=== PATIENT | female | born 1970 | race Caucasian/White ===

== ENCOUNTER 2017-03-08 22:30 | Emergency (ER) | payer BC ==
[2017-03-08 22:41] VITALS: BP 144/81; PULSE 83; TEMP 98.7; BMI 24.5
[2017-03-08] MEDS ORDERED: SODIUM CHLORIDE 1,000 ML IV ONE (22:45)
[2017-03-08] MEDS ORDERED: morphine CARPU-JECT 4 MG/1 ML DISP.SYRIN IVPUSH ONE (22:45)
[2017-03-08] MEDS ORDERED: ONDANSETRON 4 MG/2 ML VIAL IVPB ONE (22:45)
[2017-03-08] MEDS ORDERED: KETOROLAC TROMETHAMINE 30 MG/1 ML VIAL IVPUSH ONE (22:45)
--- NOTE | 2017-03-08 22:53 | PDOC ---
History of Present Illness - General Chief Complaint: Pain, Acute Stated Complaint: ABDOMINAL PAIN Time Seen by Provider: 03/08/17 22:32 History Source: Patient Exam Limitations: No Limitations - History of Present Illness Initial Comments: 03/08/17 23:04 This is a 46-year-old female who comes in complaining of progressive pelvic pain 1 day. Patient is rise pain is severe and similar to pain she had when she had a ruptured ovarian cyst and also similar to pain she had when she had uterine fibroids. Patient is status post hysterectomy for removal of her fibroids but still has her ovaries. Patient denies any fevers or chills. Patient is complaining some nausea but denies any vomiting. Patient took some NSAIDs this morning for the pain. Patient denies any frequency, dysuria, back pain or flank pain. PAST MEDICAL HISTORY: as per history of present illness PAST SURGICAL HISTORY: As per history of present illnes SOCIAL HISTORY: Pt lives with family and is employed. MEDICATIONS: reviewed ALLERGIES: As per nursing notes Review of Systems General: No fevers or chills, no weakness, no weight loss HEENT: No change in vision. No sore throat,. No ear pain CardioVascular: No chest pain or shortness of breath Respiratory:No cough, or wheezing. Gastrointestinal: Positive nausea, no vomitting, diarrhea or constipation, No rectal bleeding Genitourinary: No dysuria, hematuria, or frequency, positive pelvic pain Musculoskeletal: No joint or muscle pain or swelling Neurologic: No headache, vertigo, dizziness or loss of consciousness Psychiatric: nor depression Skin: No rashes or easy bruising Endocrine: no increased thirst or abnormal weight change Allergic: no skin or latex allergy All other systems reviewed and normal Exam: General: Well-nourished well-developed individual, no acute distress HEENT: Throat: Normal, tonsils normal, no erythema or exudate Neck: Supple, no meningeal signs, no lymphadenopathy Eyes::Pupils equal reactive and round, extraocular motion intact Cardiac: S1-S2 normal, regular rate and rhythm, no murmurs rubs or gallops Respiratory: Lungs clear to auscultation bilateral Abdomen: Soft, nondistended, normal bowel sounds, moderately tender on palpation across lower abdomen with more tenderness towards the right lower quadrant. There is no guarding or rebound. Extremities: Warm, dry, no cyanosis, clubbing, or edema Skin: No rashes Neuro: Alert and oriented x3, nonfocal exam, grossly intact, normal gait Psych: Normal mood and affect Assessment and plan: This is a 46-year-old female who comes in complaining of pelvic pain. Patient has a history of ruptured ovarian cyst in the past and it appears the patient again has a ruptured ovarian cyst with a hemorrhagic component to it. Ultrasound shows moderate amount of fluid in the pelvis and a cyst. A repeat H&H was slightly lower but not significantly changed patient did receive a liter of fluid as well. Call patient's OB doctor and discussed with patient's OB doctor will see patient in the morning. Past History - Past Medical History Allergies/Adverse Reactions: Allergies Allergy/AdvReac Type Severity Reaction Status Date / Time No Known Allergies Allergy Verified 07/21/14 08:57 Home Medications: Ambulatory Orders Ibuprofen [Motrin -] 800 mg PO TID PRN #20 tablet 07/21/14 Oxycodone HCl/Acetaminophen [Percocet 5-325 mg Tablet] 1 - 2 tab PO Q4H #20 tablet MDD 8 03/09/17 Anemia: No Diabetes: No - Reproductive History (#): 1 Para: 0 Polycystic Ovaries: Yes Therapeutic (s) & number: No Spontaneous : 1 - Suicide/Smoking/Psychosocial Hx Smoking History: Never smoked Hx Alcohol Use: Yes (SOCIAL) Substance Use Type: Alcohol ED Treatment Course - LABORATORY CBC & Chemistry Diagram: 03/09/17 01:34 03/08/17 23:00 *DC/Admit/Observation/Transfer Diagnosis at time of Disposition: Cyst of ovary - Discharge Dispostion Disposition: HOME Condition at time of disposition: Stable - Prescriptions Prescriptions: Oxycodone HCl/Acetaminophen [Percocet 5-325 mg Tablet] 1 - 2 tab PO Q4H #20 tablet MDD 8 - Patient Instructions Printed Discharge Instructions: DI for Ovarian Cyst Additional Instructions: Follow up with your OB this morning as discussed. For the pain you can take Percocet one or 2 tablets every 4-6 hours as needed Return to the emergency department immediately with ANY new, persistent or worsening symptoms. Continue any medications as previously prescribed by your physician. You should follow up with your primary doctor as soon as possible regarding today's emergency department visit. . Please make sure your doctor reviews the results of your emergency evaluation. Thank you for coming to the Emergency Department today for your care. It was a pleasure to see you today. Please note that your evaluation is INCOMPLETE until you follow-up with your doctor.
[2017-03-08 23:18] LABS: PH,URINE 6.5 (4.5-8); URINE APPEARANCE Clear; URINE BILIRUBIN Negative (NEGATIVE); URINE GLUCOSE (UA) Negative (NEGATIVE); URINE KETONE Negative (NEGATIVE); URINE LEUK ESTERASE Negative (NEGATIVE); URINE NITRITE Negative (NEGATIVE); URINE PROTEIN Negative (NEGATIVE); URINE UROBILINOGEN 0.2 (0.2-1.0)
[2017-03-08 23:19] LABS: BASOPHIL 0.4 % (0-2.0); EOSINOPHIL 2.2 % (0-4.5); MCH 30.3 pg (25.7-33.7); MCHC 34.7 g/dl (32.0-36.0); MEAN CELL VOLUME 87.4 fl (80-96); MEAN PLT VOLUME 9.2 fl (7.5-11.1); PLATELET COUNT 239 K/MM3 (134-434); URINE BLOOD 2+ (NEGATIVE); URINE COLOR YELLOW; WHITE BLOOD COUNT 10.8 K/mm3 (4.0-10.8)
[2017-03-08 23:25] LABS: URINE BACTERIA FEW /hpf (NEGATIVE)
[2017-03-08 23:27] LABS: ALK PHOS 36 U/L (32-92); ANION GAP 10 (8-16); BILIRUBIN,TOTAL 0.4 mg/dl (0.2-1.0); CALCIUM 8.9 mg/dl (8.4-10.2); CO2 17 mmol/L (22-28); CREATININE 0.6 mg/dl (0.6-1.3); GLUCOSE,RANDOM 126 mg/dl (74-106); SGOT/AST 17 U/L (10-42); SGPT/ALT 13 U/L (10-40); TOT PROT 6.9 g/dl (6.4-8.3)
[2017-03-08] MEDS ORDERED: morphine CARPU-JECT 2 MG/1 ML DISP.SYRIN IVPUSH ONE (23:27)
[2017-03-08] MEDS ORDERED: morphine CARPU-JECT 2 MG/1 ML DISP.SYRIN ONE (23:28)
[2017-03-09 02:18] LABS: MCH 30.4 pg (25.7-33.7); MCHC 34.3 g/dl (32.0-36.0); MEAN CELL VOLUME 88.7 fl (80-96); MEAN PLT VOLUME 9.5 fl (7.5-11.1); PLATELET COUNT 206 K/MM3 (134-434); RDW 12.9 % (11.6-15.6); WHITE BLOOD COUNT 10.3 K/mm3 (4.0-10.0)
== END 2017-03-09 02:40 | disposition home or self-care (01) ==
LOC: FER 22:30
PROC: 3E033NZ Introduction of Analgesics, Hypnotics, Sedatives into Peripheral Vein, Percutaneous Approach (ICD-10-PCS; principal; 2017-03-08)
PROC: 3E0333Z Introduction of Anti-inflammatory into Peripheral Vein, Percutaneous Approach (ICD-10-PCS; 2017-03-08)
PROC: 3E033GC Introduction of Other Therapeutic Substance into Peripheral Vein, Percutaneous Approach (ICD-10-PCS; 2017-03-08)
PROC: 3E0337Z Introduction of Electrolytic and Water Balance Substance into Peripheral Vein, Percutaneous Approach (ICD-10-PCS; 2017-03-08)
DX: N83.209 Unspecified ovarian cyst, unspecified side (principal)
CPT/HCPCS: 36415; 76830-TC; 76856-TC; 80053; 81003; 81015; 85025; 85027; 99282-25

== ENCOUNTER 2017-05-14 22:53 | Emergency (ER) | payer BC ==
[2017-05-14 23:03] VITALS: BP 121/80; PULSE 88; TEMP 98.2; BMI 24.5
--- NOTE | 2017-05-14 23:03 | PDOC ---
History of Present Illness - General Chief Complaint: Pain, Acute Stated Complaint: ABDOMINAL PAIN Time Seen by Provider: 05/14/17 23:00 - History of Present Illness Initial Comments: This 46-year-old woman with a history of multiple ruptured ovarian cysts and hysterectomy for fibroids but no other significant past medical history presents with 1 day of right-sided abdominal/pelvic pain. Patient awakened this morning with dull, "cramping" pain in her lower abdomen. Pain continued despite having bowel movement. Throughout the day, the pain worsened and was associated with nausea without vomiting. Pain Became located in the right flank this evening which patient recalled also occurred when she had ruptured hemorrhagic right ovarian cyst approximately 2 months ago ( evaluated here). Patient has been mildly lightheaded tonight but denies shortness of breath/ fatigue. Follow-up by her household assistant after cyst rupture 2 months ago showed no further bleeding or other abnormalities. Past History - Past Medical History Allergies/Adverse Reactions: Allergies Allergy/AdvReac Type Severity Reaction Status Date / Time No Known Allergies Allergy Verified 05/14/17 22:57 Home Medications: Ambulatory Orders NK [No Known Home Medication] 05/14/17 Anemia: No Diabetes: No Disorders: Yes (FIBROIDS, CYSTS) - Reproductive History (#): 1 Para: 0 Polycystic Ovaries: Yes Therapeutic (s) & number: No Spontaneous : 1 - Suicide/Smoking/Psychosocial Hx Smoking History: Never smoked Hx Alcohol Use: Yes (SOCIAL) Substance Use Type: Alcohol Review of Systems - Review of Systems Able to Perform ROS?: Yes Comments:: 12 point review of systems is negative except for what is noted in the history of present illness *Physical Exam - Physical Exam Comments: GENERAL: Adult female, alert and oriented 3, in mild distress secondary to right-sided abdominal/pelvic pain. HEAD: Normal with no signs of trauma. EYES: PERRLA, EOMI, sclera anicteric, conjunctiva clear. ENT: Ears normal, nares patent, oropharynx clear without exudates. Dry mucous membranes. NECK: Normal range of motion, supple without lymphadenopathy, JVD, or masses. LUNGS: Breath sounds equal, clear to auscultation bilaterally. No wheezes, and no crackles. HEART:Regular rate and rhythm, normal S1 and S2 without murmur, rub or gallop. ABDOMEN:.normal bowel sounds moderate right lower quadrant/right flank tenderness No guarding or rebound.No masses No distention. EXTREMITIES: Normal range of motion, no edema. No clubbing or cyanosis. No erythema, or tenderness. NEUROLOGICAL: Cranial nerves II through XII grossly intact. Normal speech. No focal neurological deficits. MUSCULOSKELETAL: Back non-tender to palpation, no CVA tenderness SKIN: Warm, Dry, normal turgor, no rashes or lesions noted. Progress Note - Progress Note Progress Note: Patient given Toradol 60 mg IM for analgesia Medical Decision Making - Medical Decision Making 05/15/17 01:39 Transvaginal ultrasound interpreted by of radiology staff: Both ovaries are normal in size with arterial flow present. There is a simple appearing cyst in the right ovary measuring 1.5 x 1.9 x 1.2 cm there is a complex cyst in the left ovary measuring 1.4 x 0.6 x 1 0.0 cm with low-level internal echoes. There is a very small amount of nonspecific free fluid in the cul-de-sac. Patient feels significantly better after IM Toradol 60 mg. There is no further nausea. Repeat examination reveals minimal tenderness in the right lower quadrant/right flank. No rebound or guarding is present. In light of patient's history of multiple ruptured ovarian cysts and small amount of fluid in the cul-de-sac, clinical presentation consistent with ruptured ovarian cyst without significant hemorrhage or fluid loss. Since patient is comfortable now without nausea and only mild pain, she will be discharged with instructions to use [id number] NSAIDs or acetaminophen as needed. She should contact her household assistant for follow-up within the next 48 hours. Since patient has not had her appendix removed (either duringhysterectomy or for acute appendicitis), early acute appendicitis may still be possible. This was discussed with the patient. She should return to emergency room immediately if she has worsening pain or has vomiting/fever *DC/Admit/Observation/Transfer Diagnosis at time of Disposition: Cyst of ovary, right - Discharge Dispostion Disposition: HOME Condition at time of disposition: Stable - Referrals - Patient Instructions Printed Discharge Instructions: Ovarian Cyst Additional Instructions: Ibuprofen/naproxen/acetaminophen as needed for pain Return to ER immediately if you have worsening pain or experience vomiting/fever Follow-up with your household assistant within the next 48 hours - Post Discharge Activity
[2017-05-15] MEDS ORDERED: KETOROLAC TROMETHAMINE 60 MG/2 ML VIAL IM ONE (00:09)
[2017-05-15] MEDS ORDERED: KETOROLAC TROMETHAMINE 60 MG/2 ML VIAL ONE (00:10)
== END 2017-05-15 01:37 | disposition home or self-care (01) ==
LOC: FER 22:53
PROC: 3E0233Z Introduction of Anti-inflammatory into Muscle, Percutaneous Approach (ICD-10-PCS; principal; 2017-05-14)
DX: N83.201 Unspecified ovarian cyst, right side (principal)
CPT/HCPCS: 76830-TC; 99281-25

== ENCOUNTER 2018-07-23 11:25 | Emergency (ER) | payer SELFPAY ==
[2018-07-23 11:31] VITALS: TEMP 98.2; BMI 24.5
[2018-07-23 11:41] LABS: URINE APPEARANCE Clear; URINE BILIRUBIN Negative (NEGATIVE); URINE COLOR Amber; URINE GLUCOSE (UA) Negative (NEGATIVE); URINE KETONE Trace (NEGATIVE); URINE LEUK ESTERASE TRACE (NEGATIVE); URINE NITRITE Negative (NEGATIVE); URINE PROTEIN Negative (NEGATIVE); URINE UROBILINOGEN 0.2 (0.2-1.0)
[2018-07-23] MEDS ORDERED: KETOROLAC TROMETHAMINE 30 MG/1 ML VIAL IVPUSH ONE (11:44)
[2018-07-23] MEDS ORDERED: morphine CARPU-JECT 4 MG/1 ML DISP.SYRIN IVPUSH ONE ×2 (11:44→12:58)
[2018-07-23] MEDS ORDERED: KETOROLAC TROMETHAMINE 30 MG/1 ML VIAL ONE (11:47)
[2018-07-23 11:48] LABS: HCG,QUALITATIVE URINE Negative
[2018-07-23] MEDS ORDERED: morphine SULFATE 4 MG/ML VIAL ONE ×2 (11:54→13:01)
[2018-07-23 12:14] LABS: BASO % 0.4 % (0-2.0); HEMATOCRIT 43.9 % (32.4-45.2); HEMOGLOBIN 14.3 GM/dl (10.7-15.3); MCH 30.2 pg (25.7-33.7); MCHC 32.6 g/dl (32.0-36.0); MEAN CELL VOLUME 92.6 fl (80-96); MEAN PLT VOLUME 9.2 fl (7.5-11.1); NEUT % 73.6 % (42.8-82.8); PLATELET COUNT 238 K/MM3 (134-434); RBC 4.74 M/mm3 (3.60-5.2); RDW 12.8 % (11.6-15.6); WHITE BLOOD COUNT 9.4 K/mm3 (4.0-10.8)
[2018-07-23] MEDS ORDERED: SODIUM CHLORIDE 1,000 ML IV STA (12:15)
[2018-07-23 12:22] LABS: EPI CELLS 1+ /HPF; URINE RBC 0-2 /hpf (0-3)
[2018-07-23 12:23] LABS: URINE BACTERIA 1+ /hpf (NEGATIVE)
[2018-07-23 12:23] LABS: ALK PHOS 42 U/L (45-117); ANION GAP 8 MMOL/L (8-16); BILIRUBIN,TOTAL 0.3 mg/dl (0.2-1); BLOOD UREA NITROGEN 11 mg/dl (7-18); CALCIUM 9.1 mg/dl (8.5-10); CHLORIDE 103 mmol/L (98-107); CO2 21 mmol/L (21-32); CREATININE 0.5 mg/dl (0.55-1.3); GLUCOSE,RANDOM 121 mg/dl (74-106); POTASSIUM 4.2 mmol/L (3.5-5.1); SGOT/AST 18 U/L (15-37); SGPT/ALT 15 U/L (13-61); SODIUM 132 mmol/L (136-145); TOT PROT 7.3 g/dl (6.4-8.2)
--- NOTE | 2018-07-23 12:49 | PDOC ---
History of Present Illness - General Chief Complaint: Pain Stated Complaint: R LOWER SIDE ABDOMINAL PAIN Time Seen by Provider: 07/23/18 11:37 History Source: Patient Exam Limitations: No Limitations - History of Present Illness Initial Comments: 07/23/18 12:47 48 year old female patient c/ hx of ovarian cysts p/w sudden onset of R lower abd pain today. The patient reports she has a hx of partial hysterectomy with both ovaries preserved. States she has this same exact pain prior in the past with ovarian cyst. No fevers, chills, nausea, vomiting, diarrhea. Pain is constant and persistent. She reported that she has had many prior presentations to the ED for cyst rupture where she would be consistently worked up for appendicitis (and the results would be negative for appendicitis). Denies dysuria. Past History - Past Medical History Allergies/Adverse Reactions: Allergies Allergy/AdvReac Type Severity Reaction Status Date / Time No Known Allergies Allergy Verified 07/23/18 11:34 Home Medications: Ambulatory Orders Naproxen 500 mg PO BID PRN #30 tablet 07/23/18 Ondansetron HCl [Zofran] 4 mg PO Q8H PRN #20 tablet 07/23/18 Oxycodone HCl/Acetaminophen [Percocet 5-325 mg Tablet] 1 tab PO Q6H PRN #20 tablet MDD 4 07/23/18 Anemia: No COPD: No Diabetes: No Disorders: Yes (FIBROIDS, CYSTS) - Reproductive History (#): 1 Para: 0 Polycystic Ovaries: Yes Therapeutic (s) & number: No Spontaneous : 1 - Suicide/Smoking/Psychosocial Hx Smoking History: Never smoked Have you smoked in the past 12 months: No Information on smoking cessation initiated: No Hx Alcohol Use: No Drug/Substance Use Hx: No Substance Use Type: Alcohol Review of Systems - Review of Systems Able to Perform ROS?: Yes Comments:: 07/23/18 12:58 GENERAL/CONSTITUTIONAL: [No fever or chills. No weakness. No weight change.] HEAD, EYES, EARS, NOSE AND THROAT: [No change in vision. No ear pain or discharge. No sore throat.] CARDIOVASCULAR: [No chest pain or shortness of breath.] RESPIRATORY: [No cough, wheezing, or hemoptysis.] GASTROINTESTINAL: [No nausea, vomiting, diarrhea or constipation. No rectal bleeding.] + abdominal pain GENITOURINARY: [No dysuria, frequency, or change in urination.] MUSCULOSKELETAL: [No joint or muscle swelling or pain. No neck or back pain.] SKIN AND BREASTS: [No rash or easy bruising.] NEUROLOGIC: [No headache, vertigo, loss of consciousness, or loss of sensation.] PSYCHIATRIC: [No depression or anxiety.] ENDOCRINE: [No increased thirst. No abnormal weight change.] HEMATOLOGIC/LYMPHATIC: [No anemia, easy bleeding, or history of blood clots.] ALLERGIC/IMMUNOLOGIC: [No hives or skin allergy. No latex allergy.] *Physical Exam - Vital Signs Last Vital Signs Temp Pulse Resp BP Pulse Ox 98.2 F 92 H 18 160/80 100 07/23/18 11:26 07/23/18 11:26 07/23/18 11:26 07/23/18 11:26 07/23/18 11:26 - Physical Exam Comments: 07/23/18 12:59 GENERAL: Awake, alert, and fully oriented, uncomfortable appearing HEAD: No signs of trauma EYES: EOMI, sclera anicteric, conjunctiva clear ENT: Auricles normal inspection, hearing grossly normal, nares patent NECK: Normal ROM, supple ABDOMEN: Soft, No guarding, no rebound. No masses. TTP RLQ, right mid pain. EXTREMITIES: Normal range of motion, no edema. No clubbing or cyanosis. No cords, erythema, or tenderness NEUROLOGICAL: Cranial nerves II through XII grossly intact. Normal speech SKIN: Warm, Dry, normal turgor, no rashes or lesions noted. Moderate Sedation - Procedure Monitoring Vital Signs: Procedure Monitoring Vital Signs Temperature 98.2 F 07/23/18 11:26 Pulse Rate 92 H 07/23/18 11:26 Respiratory Rate 18 07/23/18 11:26 Blood Pressure 160/80 07/23/18 11:26 O2 Sat by Pulse Oximetry (%) 100 07/23/18 11:26 ED Treatment Course - LABORATORY CBC & Chemistry Diagram: 07/23/18 11:59 07/23/18 11:59 - ADDITIONAL ORDERS Additional order review: Laboratory Results 07/23/18 07/23/18 11:59 11:33 Sodium 132 L Potassium 4.2 Chloride 103 Carbon Dioxide 21 Anion Gap 8 BUN 11 Creatinine 0.5 L Creat Clearance w eGFR > 60 Random Glucose 121 H Calcium 9.1 Total Bilirubin 0.3 AST 18 ALT 15 Alkaline Phosphatase 42 L Total Protein 7.3 Albumin 4.0 Urine Color Lisa Urine Appearance Clear Urine pH 7.0 Ur Specific [place] 1.025 Urine Protein Negative Urine Glucose (UA) Negative Urine Ketones Trace Urine Blood Negative Urine Nitrite Negative Urine Bilirubin Negative Urine Urobilinogen 0.2 Ur Leukocyte Esterase Trace H Urine RBC 0-2 Urine WBC 5-10 Ur Epithelial Cells 1+ Urine Bacteria 1+ Urine HCG, Qual Negative 07/23/18 11:59 RBC 4.74 MCV 92.6 MCHC 32.6 RDW 12.8 MPV 9.2 Neutrophils % 73.6 Lymphocytes % 19.0 Monocytes % 5.0 Eosinophils % 2.0 Basophils % 0.4 - RADIOLOGY Radiology Studies Ordered: Category Date Time Status TRANSVAGINAL ULTRASOUND US [US] Stat Ultrasound 07/23/18 12:13 Ordered - Medications Given in the ED: ED Medications Discontinued Medications Generic Name Dose Route Start Last Admin Trade Name Freq PRN Reason Stop Dose Admin Ketorolac Tromethamine 30 mg 07/23/18 11:44 07/23/18 11:59 Toradol Injection - IVPUSH 07/23/18 11:45 30 mg ONCE ONE Administration Morphine Sulfate 4 mg 07/23/18 11:44 07/23/18 11:59 Morphine Injection - IVPUSH 07/23/18 11:45 4 mg ONCE ONE Administration Medical Decision Making - Medical Decision Making 07/23/18 12:59 Vital Signs Temp Pulse Resp BP Pulse Ox 98.2 F 92 H 18 160/80 100 07/23/18 11:26 07/23/18 11:26 07/23/18 11:26 07/23/18 11:26 07/23/18 11:26 R sided abdominal pain. I suspect that this is an ovarian cyst rupture. Pt reports that this feels exactly the same as her ovarian cyst. Given her history, will try to avoid radiation imaging, and will defer on abdominal CT. Will order pelvic ultrasound. Labs and UA reviewed. Unremarkable. Pain control and reassess. 07/23/18 14:37 CBC, BMP 07/23/18 11:59 07/23/18 11:59 CMP Sodium 132 mmol/L (136-145) L 07/23/18 11:59 Potassium 4.2 mmol/L (3.5-5.1) 07/23/18 11:59 Chloride 103 mmol/L (98-107) 07/23/18 11:59 Carbon Dioxide 21 mmol/L (21-32) 07/23/18 11:59 Anion Gap 8 MMOL/L (8-16) 07/23/18 11:59 BUN 11 mg/dl (7-18) 07/23/18 11:59 Creatinine 0.5 mg/dl (0.55-1.3) L 07/23/18 11:59 Creat Clearance w eGFR > 60 (>60) 07/23/18 11:59 Random Glucose 121 mg/dl (74-106) H 07/23/18 11:59 Calcium 9.1 mg/dl (8.5-10) 07/23/18 11:59 Total Bilirubin 0.3 mg/dl (0.2-1) 07/23/18 11:59 AST 18 U/L (15-37) 07/23/18 11:59 ALT 15 U/L (13-61) 07/23/18 11:59 Alkaline Phosphatase 42 U/L (45-117) L 07/23/18 11:59 Total Protein 7.3 g/dl (6.4-8.2) 07/23/18 11:59 Albumin 4.0 g/dl (3.4-5.0) 07/23/18 11:59 Urine Test Results Urine Color Lisa 07/23/18 11:33 Urine Appearance Clear 07/23/18 11:33 Urine pH 7.0 (4.5-8) 07/23/18 11:33 Ur Specific [place] 1.025 (1.010-1.035) 07/23/18 11:33 Urine Protein Negative (NEGATIVE) 07/23/18 11:33 Urine Glucose (UA) Negative (NEGATIVE) 07/23/18 11:33 Urine Ketones Trace (NEGATIVE) 07/23/18 11:33 Urine Blood Negative (NEGATIVE) 07/23/18 11:33 Urine Nitrite Negative (NEGATIVE) 07/23/18 11:33 Urine Bilirubin Negative (NEGATIVE) 07/23/18 11:33 Ur Leukocyte Esterase Trace (NEGATIVE) H 07/23/18 11:33 Urine RBC 0-2 /hpf (0-3) 07/23/18 11:33 Urine WBC 5-10 (0-5) 07/23/18 11:33 Ur Epithelial Cells 1+ /HPF 07/23/18 11:33 Urine Bacteria 1+ /hpf (NEGATIVE) 07/23/18 11:33 Labs reviewed. (Trace leuk positive, but with no dysuria. Will not treat as UTI) Ultrasound reviewed. R sided complex hemorrhagic cyst with fluid. I suspect that this is the cause of her pain. After morphine, toradol and tylenol, patient's pain, improved drastically. I advised her that she shouldd follow up with a [facility] doctor given the complex hemorrhagic cyst. Pt states that she will. Pt will go home with her . *DC/Admit/Observation/Transfer Diagnosis at time of Disposition: Hemorrhagic cyst of right ovary - Discharge Dispostion Disposition: HOME Condition at time of disposition: Improved Decision to Admit order: No - Prescriptions Prescriptions: Naproxen 500 mg PO BID PRN #30 tablet PRN Reason: Pain Ondansetron HCl [Zofran] 4 mg PO Q8H PRN #20 tablet PRN Reason: Nausea Oxycodone HCl/Acetaminophen [Percocet 5-325 mg Tablet] 1 tab PO Q6H PRN #20 tablet MDD 4 PRN Reason: Pain - Referrals - Patient Instructions Printed Discharge Instructions: DI for Ovarian Cyst Additional Instructions: You have a hemorrhagic right complex ovarian cyst. Please follow up with your [facility] doctor. For pain, take 500 mg naproxen every 12 hours as needed for pain. For nausea, take 4 mg zofran every 8 hours as needed. For severe pain, take a tablet of percocet every 6 hours as needed. Do not drink or drive while on this medication. It may take several days before your symptoms resolve. - Post Discharge Activity
[2018-07-23] MEDS ORDERED: ACETAMINOPHEN 1000 MG/100 ML VIAL (NON FORMULARY) IVPB ONE (12:58)
[2018-07-23] MEDS ORDERED: ACETAMINOPHEN INJECTION 100 ML IVPB ONE (13:01)
[2018-07-23 13:12] VITALS: BP 123/81; PULSE 72
== END 2018-07-23 14:55 | disposition home or self-care (01) ==
LOC: FER 11:25
PROC: 3E0333Z Introduction of Anti-inflammatory into Peripheral Vein, Percutaneous Approach (ICD-10-PCS; principal; 2018-07-23)
PROC: 3E033NZ Introduction of Analgesics, Hypnotics, Sedatives into Peripheral Vein, Percutaneous Approach (ICD-10-PCS; 2018-07-23)
PROC: 3E0337Z Introduction of Electrolytic and Water Balance Substance into Peripheral Vein, Percutaneous Approach (ICD-10-PCS; 2018-07-23)
DX: N83.291 Other ovarian cyst, right side (principal)
CPT/HCPCS: 36415; 76830-TC; 80053; 81003; 81015; 84703; 85025; 87086; 99283-25; J0131; J7030